=== PATIENT | female | born 1985 | race Caucasian/White ===

== ENCOUNTER → 2020-11-03 | Outpatient (CLI) | payer BC ==
[~2020-11-03] MED LIST: COLACE 100MG C100 MG PO; COLACE100 MG PO; FLONASE 0.05% N16 GM; IBUPROFEN600 MG PO; IBUPROFEN800 MG PO; LORTAB 5-325 M1 EACH PO; NORCO 5-325 TA1 EACH PO; PERCOCET 5/325 T1 EA PO; PRENATAL VITAM1 EAC5 PO; SINGULAIR10 MG PO; VISTARIL 50 MG50 MG PO; ZANTAC150 MG PO; ZYRTEC10 MG PO
== END ==
LOC: LAB 10:36
DX: Z32.00 Encounter for pregnancy test, result unknown (principal)
CPT/HCPCS: 36415; 84702

== ENCOUNTER → 2020-11-05 | Outpatient (CLI) | payer BC | LOC: LAB 10:41 | DX: Z32.00 Encounter for pregnancy test, result unknown (principal) | CPT/HCPCS: 84702 ==

== ENCOUNTER → 2020-11-15 | Outpatient (CLI) | payer BC | LOC: LAB 08:37 | DX: O20.0 Threatened abortion (principal); Z3A.00 Weeks of gestation of pregnancy not specified | CPT/HCPCS: 36415; 84702 ==

== ENCOUNTER → 2020-11-16 | Outpatient (CLI) | payer BC | LOC: LAB 10:51 | DX: Z32.00 Encounter for pregnancy test, result unknown (principal) | CPT/HCPCS: 36415; 84702 ==

== ENCOUNTER → 2020-11-17 | Day surgery (SDC) | payer BC ==
[2020-11-17 10:30] LABS: HEMOGLOBIN 14.6 gm/dl (12.3-15.3); RED BLOOD COUNT 5.05 M/UL (4.00-5.10); WHITE BLOOD COUNT 8.5 K/UL (4.5-11.0)
== END | disposition home or self-care (01) ==
LOC: OR 07:14
PROVIDERS: Obstetrics & Gynecology
DX: N70.11 Chronic salpingitis (principal); N83.8 Other noninflammatory disorders of ovary, fallopian tube and broad ligament; J45.909 Unspecified asthma, uncomplicated; M19.90 Unspecified osteoarthritis, unspecified site; F41.9 Anxiety disorder, unspecified; Z88.0 Allergy status to penicillin; Z88.1 Allergy status to other antibiotic agents; Z88.3 Allergy status to other anti-infective agents; Z87.59 Personal history of other complications of pregnancy, childbirth and the puerperium; Z79.899 Other long term (current) drug therapy; Z20.822 Contact with and (suspected) exposure to COVID-19
CPT/HCPCS: 85025; J1100; J1170; J1885; J2001; J2250; J2405; J2704; J2710; J3010; J7120; U0002